=== PATIENT | male | born 1975 | race Caucasian/White ===

== ENCOUNTER 2024-04-18 10:21 | Outpatient (CLI) | payer BC ==
[2024-04-18] MEDS ORDERED: E-Z-HD 98% W/W 340GM BOT (x-ray ONLY) ONE (12:05)
[2024-04-18] MEDS ORDERED: Barium Sulfate 96% 176 GM BOT (xray ONLY) ONE (12:05)
== END 2024-04-18 10:22 | disposition home or self-care (01) ==
LOC: RAD 10:21
PROVIDERS: ATTEND Internal Medicine
DX: R13.12 Dysphagia, oropharyngeal phase (principal)
CPT/HCPCS: 74246